=== PATIENT | male | born 1990 | race Caucasian/White ===

== ENCOUNTER 2017-06-07 18:02 | Emergency (ER) | payer OTHER ==
[~2017-06-07] VITALS: Ht 182.9 cm; Wt 99.8 kg
--- NOTE | 2017-06-07 20:00 | NUR ---
Placed dressing on right shoulder I/D as ordered
--- NOTE | 2017-06-07 20:13 | NUR ---
Patient discharged to home in stable conditon. Written and verbal after care instructions given. Patient verbalizes understanding of instructions.
[2017-06-07 20:14] VITALS: BP 145/82
== END 2017-06-07 20:14 | disposition home or self-care (01) ==
LOC: ER 18:03
DX: L02.413 Cutaneous abscess of right upper limb (principal)
CPT/HCPCS: 10060; 99283; A4663